=== PATIENT | female | born 1995 | race Caucasian/White ===

== ENCOUNTER 2017-04-02 14:19 | Inpatient (IN) | payer MEDICAID ==
[2017-04-02 16:30] LABS: ALANINE AMINOTRANSFERASE 149 IU/L (13-69); ALBUMIN 3.5 g/dl (3.3-4.9); ALBUMIN/GLOBULIN RATIO 1.02; ALKALINE PHOSPHATASE 324 IU/L (42-121); ANION GAP 11 (8-16); ASPARTATE AMINO TRANSFERASE 83 IU/L (15-46); BILIRUBIN,INDIRECT 0.2 mg/dl (0-1.1); BILIRUBIN,TOTAL 0.2 mg/dl (0.2-1.3); BLOOD UREA NITROGEN 8 mg/dl (7-20); CALCIUM 9.4 mg/dl (8.4-10.2); CARBON DIOXIDE 20 mmol/L (21-31); CHLORIDE 110 mmol/L (97-110); CREATININE 0.56 mg/dl (0.44-1.00); GLUCOSE 77 mg/dl (70-220); POTASSIUM 4.1 mmol/L (3.5-5.1); SODIUM 137 mmol/L (135-144); TOTAL PROTEIN 6.9 g/dl (6.1-8.1)
[2017-04-02] MEDS ORDERED: OXYCODONE/ACETAMINOPHEN (5/325) TAB PO (18:30)
[2017-04-02] MEDS ORDERED: CARBOPROST 250 MCG INJ IM (18:30)
[2017-04-02] MEDS ORDERED: HYDROCODONE/APAP (5/325) TAB PO (18:30)
[2017-04-02] MEDS ORDERED: LIDOCAINE 1% (MPF) 30 ML INJ INJ (18:30)
[2017-04-02] MEDS ORDERED: OXYTOCIN 30 UNITS/LR 500 ML IV ×2 (18:30)
[2017-04-02] MEDS ORDERED: MISOPROSTOL 200 MCG TAB PR (18:30)
[2017-04-02] MEDS ORDERED: OXYCODONE/ASPIRIN (4.88/325) TAB PO (18:30)
[2017-04-02] MEDS ORDERED: METHYLERGONOVINE 0.2 MG INJ IM (18:30)
[2017-04-02] MEDS ORDERED: IBUPROFEN 600 MG TAB PO (18:30)
[2017-04-02] MEDS ORDERED: BUTORPHANOL 2 MG INJ IV ×2 (18:30)
[2017-04-02 18:40] LABS: ADD MAN DIFF? NO
[2017-04-02 18:43] LABS: ABNORMAL IP MESSAGE 1; BASOPHILS % 0.3 % (0.0-2.0); EOSINOPHILS # 0.1 10^3/ul (0.0-0.5); HEMATOCRIT 33.2 % (37.0-47.0); HEMOGLOBIN 11.1 g/dl (12.0-16.0); LYMPHOCYTES % 28.7 % (18.0-55.0); MEAN CORPUSCULAR HEMOGLOBIN 28.5 pg (29.0-33.0); MEAN CORPUSCULAR HGB CONC 33.4 g/dl (32.0-37.0); MEAN CORPUSCULAR VOLUME 85.1 fl (72.0-104.0); MONOCYTE # 0.4 10^3/ul (0.3-0.9); MONOCYTES % 6.2 % (0.0-13.0); NEUTROPHIL # 4.4 10^3/ul (1.6-7.5); NEUTROPHILS % 63.4 % (30.0-74.0); PLATELET COUNT 146 10^3/UL (140-415); RED CELL DISTRIBUTION WIDTH 13.2 % (11.5-14.5)
[2017-04-02 18:43] LABS: WHITE BLOOD COUNT 6.9 10^3/ul (4.8-10.8)
[2017-04-02 18:45] LABS: POSITIVE DIFF @See below
[2017-04-02 18:46] LABS: INR 0.92; PROTIME 12.4 Sec (11.9-14.9)
[2017-04-02] MEDS: LACTATED RINGER'S 1,000 ML IV (19:00)
[2017-04-02] MEDS: AMPICILLIN 2 GM/NS (PMX) 100 ML IVPB (19:20)
[2017-04-02 19:28] LABS: HEPATITIS B SURFACE ANTIGEN NEGATIVE (NEGATIVE)
[2017-04-02] MEDS: DINOPROSTONE 10 MG VAG SUPP VAG (19:41)
[2017-04-02 20:13] LABS: HIV 1&2 ANTIBODY NEGATIVE (NEGATIVE)
[2017-04-02] MEDS: URSODIOL 300 MG CAP PO (20:20)
[2017-04-02 22:53] LABS: RAPID PLASMA REAGIN NONREACTIVE (NR)
[2017-04-02] MEDS: AMPICILLIN 1 GM/NS (PMX) 50 ML IVPB (23:11)
[2017-04-03 00:06] LABS: AMPHETAMINE/METHAMPHETAMINE Negative (NEGATIVE); BARBITURATES Negative (NEGATIVE); BENZODIAZEPINES Negative (NEGATIVE); CANNABINOIDS Negative (NEGATIVE); COCAINE Negative (NEGATIVE); OPIATES Negative (NEGATIVE)
[2017-04-03] MEDS: AMPICILLIN 1 GM/NS (PMX) 50 ML IVPB ×4 (03:43→16:12)
[2017-04-03] MEDS: LACTATED RINGER'S 1,000 ML IV ×3 (03:44→18:23)
[2017-04-03] MEDS: OXYTOCIN 30 UNITS/LR 500 ML IV ×3 (09:56→22:15)
[2017-04-03] MEDS: URSODIOL 300 MG CAP PO ×2 (10:36→13:05)
[2017-04-03] MEDS ORDERED: EPHEDrine SULFATE 50 MG/5 ML SYG IV (12:30)
[2017-04-03] MEDS ORDERED: FENTAnyl 2MCG/ML-ROPIV 0.2% 100 ML BAG EPI (12:30)
[2017-04-03] MEDS ORDERED: DIPHENHYDRAMINE 50 MG INJ IV (12:30)
[2017-04-03] MEDS ORDERED: ONDANSETRON 4 MG INJ IV ×2 (12:30→21:30)
[2017-04-03] MEDS ORDERED: NALOXONE (0.4 MG/ML) INJ IV (12:30)
[2017-04-03 15:37] LABS: RUBELLA ANTIBODY - IGG 1.95 index
[2017-04-03] MEDS ORDERED: OXYCODONE/ASPIRIN (4.88/325) TAB PO (21:30)
[2017-04-03] MEDS ORDERED: DIBUCAINE 1% 30 GM OINT PR (21:30)
[2017-04-03] MEDS ORDERED: ACETAMINOPHEN 325 MG TAB PO (21:30)
[2017-04-03] MEDS ORDERED: HYDROCODONE/APAP (5/325) TAB PO ×2 (21:30)
[2017-04-03] MEDS: OXYCODONE/ASPIRIN (4.88/325) TAB PO (22:13)
[2017-04-04] MEDS: WITCH HAZEL/GLYCERIN PAD PR (00:20)
[2017-04-04] MEDS: BENZOCAINE 20% 56 ML SPRAY TOP (00:20)
[2017-04-04] MEDS: LACTATED RINGER'S 1,000 ML IV (02:23)
[2017-04-04] MEDS: IBUPROFEN 600 MG TAB PO ×4 (06:00→17:23)
[2017-04-04 08:18] LABS: ADD MAN DIFF? NO
[2017-04-04 08:21] LABS: ABNORMAL IP MESSAGE 1; BASOPHILS % 0.3 % (0.0-2.0); EOSINOPHILS # 0.1 10^3/ul (0.0-0.5); EOSINOPHILS % 0.9 % (0.0-7.0); HEMOGLOBIN 10.6 g/dl (12.0-16.0); LYMPHOCYTES # 2.7 10^3/ul (0.8-2.9); LYMPHOCYTES % 25.7 % (18.0-55.0); MEAN CORPUSCULAR HEMOGLOBIN 27.9 pg (29.0-33.0); MEAN CORPUSCULAR HGB CONC 33.1 g/dl (32.0-37.0); MEAN CORPUSCULAR VOLUME 84.2 fl (72.0-104.0); MEAN PLATELET VOLUME 14.5 fl (7.4-10.4); MONOCYTE # 0.6 10^3/ul (0.3-0.9); MONOCYTES % 5.6 % (0.0-13.0); PLATELET COUNT 128 10^3/UL (140-415); RED CELL DISTRIBUTION WIDTH 13.2 % (11.5-14.5)
[2017-04-04 08:21] LABS: WHITE BLOOD COUNT 10.5 10^3/ul (4.8-10.8)
[2017-04-04 08:31] LABS: POSITIVE DIFF @See below
[2017-04-04] MEDS: SENNA/DOCUSATE NA (8.6MG/50MG) TAB PO ×2 (09:12→22:32)
[2017-04-04] MEDS: LANOLIN 7 GM TUBE TOP (09:13)
[2017-04-05] MEDS: IBUPROFEN 600 MG TAB PO ×3 (00:02→11:20)
[2017-04-05] MEDS: SENNA/DOCUSATE NA (8.6MG/50MG) TAB PO (08:28)
[2017-04-05] MEDS: MEASLES,MUMPS,RUBELLA VACCINE INJ SC* (09:00)
[2017-04-06 12:07] LABS: RUBELLA ANTIBODY - IGM <20.00 AU/mL
== END 2017-04-05 14:51 | disposition home or self-care (01) | DRG 775 ==
LOC: OBT 14:19 → L-D 14:19 → PP1 04-03 20:55 → OBT 17:35 → L-D 17:35
PROC: 10E0XZZ Delivery of Products of Conception, External Approach (ICD-10-PCS; principal; 2017-04-03)
PROC: 3E033VJ Introduction of Other Hormone into Peripheral Vein, Percutaneous Approach (ICD-10-PCS; 2017-04-03)
PROC: 0HQ9XZZ Repair Perineum Skin, External Approach (ICD-10-PCS; 2017-04-03)
DX: O99.214 Obesity complicating childbirth (principal); E66.01 Morbid (severe) obesity due to excess calories; Z68.35 Body mass index [BMI] 35.0-35.9, adult; O70.0 First degree perineal laceration during delivery; O69.81X0 Labor and delivery complicated by cord around neck, without compression, not applicable or unspecified; Z3A.37 37 weeks gestation of pregnancy; Z37.0 Single live birth
CPT/HCPCS: 62319; 76815; 76818; 80053; 80076; 80307; 83789; 85025; 85384; 85610; 85730; 86592; 86703; 86762; 86850; 86870; 86900; 86901; 86902; 87340